=== PATIENT | female | born 1990 | race Caucasian/White ===

== ENCOUNTER 2021-05-04 15:08 | Emergency (ER) | payer OTHER ==
[2021-05-04 19:05] LABS: BASOPHIL 0.1 % (0-2); EOSINOPHIL 0.2 % (0-5); HCT 41.5 % (37.0-47.0); HGB 13.8 g/dl (12.5-16.0); LYMPHOCYTE 10.7 % (15-48); MCH 31.4 pg (25.0-31.0); MCHC 33.3 g/dL (32.0-36.0); MCV 94.5 fL (78.0-100.0); MONOCYTE 4.4 % (0-12); MPV 10.3 fL (6.0-9.5); NEUTROPHIL 84.2 % (41-80); NRBC 0; PLT 202 K/uL (150-400); RBC 4.39 M/uL (4.20-5.40); RDW 11.5 % (11.5-14.0); WBC 8.4 K/uL (4.0-10.5)
[2021-05-04 19:08] LABS: BILIRUBIN NEGATIVE (NEGATIVE); BLOOD NEGATIVE Ery/uL (NEGATIVE); CLARITY CLEAR (CLEAR); COLOR YELLOW (YELLOW); GLUCOSE (U) NORMAL (NORMAL); LEUKOCYTES NEGATIVE Leu/uL (NEGATIVE); NITRITE NEGATIVE (NEGATIVE); PROTEIN NEGATIVE (NEGATIVE); SPECIFIC GRAVITY 1.025 (1.001-1.030); UROBILINOGEN 0.2 mg/dL (0.2-1.0); pH 5.5 (5.0-9.0)
[2021-05-04 19:25] LABS: ALBUMIN 3.7 g/dL (3.4-5.0); BILIRUBIN - TOTAL 0.6 mg/dL (0.2-1.0); BUN/CREAT RATIO (CALC) 19.2 RATIO; CREATININE 0.73 mg/dL (0.51-0.95); GLOBULIN (CALCULATION) 3.9 g/dL; POTASSIUM 4.6 mmol/L (3.5-5.1); TOTAL PROTEIN 7.6 g/dL (6.4-8.2)
[2021-05-07 00:06] LABS: CHLAMYDIA TRACHOMATIS, NAA Negative (Negative); NEISSERIA GONORRHOEAE, NAA Negative (Negative)
== END 2021-05-04 22:36 | disposition home or self-care (01) ==
LOC: FER 15:08
PROVIDERS: Emergency Medicine
DX: N70.11 Chronic salpingitis (principal)
CPT/HCPCS: 36415; 80053; 81003; 83690; 85025; 87210; 87491; 87591; J1170; J7030; Q9967

== ENCOUNTER 2021-07-02 21:32 | Emergency (ER) | payer OTHER ==
[2021-07-03 00:44] LABS: BASOPHIL 0.2 % (0-2); EOSINOPHIL 0.5 % (0-5); LYMPHOCYTE 29.7 % (15-48); MCH 30.6 pg (25.0-31.0); MCHC 33.3 g/dL (32.0-36.0); MCV 91.8 fL (78.0-100.0); MONOCYTE 6.1 % (0-12); MPV 9.7 fL (6.0-9.5); NRBC 0; PLT 254 K/uL (150-400); RBC 4.25 M/uL (4.20-5.40); RDW 13.1 % (11.5-14.0); WBC 10.4 K/uL (4.0-10.5)
[2021-07-03 00:58] LABS: ALBUMIN 3.9 g/dL (3.4-5.0); BILIRUBIN - TOTAL 0.3 mg/dL (0.2-1.0); BUN/CREAT RATIO (CALC) 17.3 RATIO; CREATININE 0.81 mg/dL (0.51-0.95); TOTAL PROTEIN 7.9 g/dL (6.4-8.2)
[2021-07-03 01:53] LABS: BILIRUBIN NEGATIVE (NEGATIVE); BLOOD NEGATIVE Ery/uL (NEGATIVE); CLARITY CLEAR (CLEAR); COLOR YELLOW (YELLOW); GLUCOSE (U) NORMAL (NORMAL); LEUKOCYTES NEGATIVE Leu/uL (NEGATIVE); NITRITE NEGATIVE (NEGATIVE); PROTEIN NEGATIVE (NEGATIVE); SPECIFIC GRAVITY >=1.030 (1.001-1.030); UROBILINOGEN 0.2 mg/dL (0.2-1.0); pH 5.5 (5.0-9.0)
[2021-07-03] MEDS ORDERED: NORCO 5-325 TA1 EACH PO (04:54)
== END 2021-07-03 05:15 | disposition home or self-care (01) ==
LOC: FER 21:32
PROVIDERS: Emergency Medicine Emergency Medical Services
DX: N70.11 Chronic salpingitis (principal)
CPT/HCPCS: 36415; 76830; 80053; 81003; 85025; J1170; J1885; J2405; J7030

== ENCOUNTER → 2021-07-22 | Day surgery (SDC) | payer OTHER ==
[~2021-07-22] VITALS: Ht 167.6 cm; Wt 113.4 kg
[~2021-07-22] MED LIST: COLACE100 MG PO; FLUOXETINE HCL20 M1 PO; IBUPROFEN800 M1 PO; NORCO 5-325 TA1 EACH PO; PERCOCET 5-3251 EACH PO; ZOFRAN4 M1 PO
[2021-07-22 09:13] LABS: HCG (URINE) SCREEN NEGATIVE (NEGATIVE)
== END | disposition home or self-care (01) ==
LOC: FAS 08:56
PROVIDERS: Obstetrics & Gynecology
DX: N70.11 Chronic salpingitis (principal); N83.8 Other noninflammatory disorders of ovary, fallopian tube and broad ligament; E66.01 Morbid (severe) obesity due to excess calories; N97.9 Female infertility, unspecified; Z87.891 Personal history of nicotine dependence; Z68.41 Body mass index [BMI] 40.0-44.9, adult; F32.A Depression, unspecified
CPT/HCPCS: 84703; 93005; J1100; J1170; J1885; J2250; J2405; J2704; J2710; J3010; J7050; J7120